=== PATIENT | female | born 1960 | race Caucasian/White ===

== ENCOUNTER 2018-04-20 07:22 | Inpatient (IN) | payer BC ==
[~2018-04-20] VITALS: Ht 170.2 cm; Wt 68.0 kg
--- NOTE | 2018-04-20 07:45 | NUR ---
BIB RA IN C-SPINE PRECAUTION WITH 3 CM LAC TO FOREHEAD S/P GLF. SEEN BY MD FOR EVAL. PT AAOX4. VSS. SAFETY AND COMFORT MEASURES PROVIDED. WILL MONITOR.
[2018-04-20] MEDS ORDERED: LIDOCAINE HCL/PF 1% 30 ML VIAL TP ONE (08:00)
[2018-04-20] MEDS ORDERED: TDAP [DIPH/PERTUSSIS/TET] 0.5 ML VIAL IM ONE ×2 (08:00→08:12)
--- NOTE | 2018-04-20 08:03 | NUR ---
PT TAKEN TO CT.
--- NOTE | 2018-04-20 08:30 | NUR ---
RAPHAEL COLLADO AT FOR WOUND CARE.
[2018-04-20] MEDS ORDERED: ALPR0.5T8 PO (08:55)
[2018-04-20] MEDS ORDERED: ESCI10TA PO (08:55)
[2018-04-20] MEDS ORDERED: LEVO137T24 PO (08:55)
[2018-04-20] MEDS ORDERED: AMLO-354 PO (08:55)
[2018-04-20] MEDS ORDERED: LIDOCAINE 1%-EPI 1:100,000 20 ML VIAL ONE (08:59)
[2018-04-20] MEDS ORDERED: ONDANSETRON HCL/PF 4 MG/2 ML VIAL ONE (10:19)
[2018-04-20] MEDS ORDERED: MORPHINE SULFATE INJ 4 MG/ML DISP.SYRIN ONE (10:20)
[2018-04-20] MEDS ORDERED: BUPR300T54 PO (10:21)
[2018-04-20] MEDS ORDERED: MORPHINE SULFATE INJ 2 MG/ML DISP.SYRIN IV ONE (10:30)
[2018-04-20] MEDS ORDERED: ONDANSETRON HCL/PF 4 MG/2 ML VIAL IVP ONE (10:30)
--- NOTE | 2018-04-20 10:36 | NUR ---
TEXTED DR. SILVESTRE FOR MRI APPROVAL.
[2018-04-20 10:51] LABS: BASOPHILS % (AUTO) 0.3 % (0.0-2.0); EOSINOPHILS % (AUTO) 0.7 % (0.0-6.0); HEMATOCRIT 39 % (33-45); HEMOGLOBIN 13.8 g/dL (11.5-14.8); LYMPHOCYTES # (AUTO) 2.5 /CMM (0.8-4.8); LYMPHOCYTES % (AUTO) 20.8 % (20.0-44.0); MEAN CORPUSCULAR HEMOGLOBIN 32 PG (26.0-33.0); MEAN CORPUSCULAR HGB CONC 36 g/dl (31.0-36.0); MEAN CORPUSCULAR VOLUME 90 fL (82-100); MONOCYTES # (AUTO) 0.7 /CMM (0.1-1.30); MONOCYTES % (AUTO) 5.6 % (2.0-12.0); NEUTROPHILS # (AUTO) 8.8 /CMM (1.8-8.9); NEUTROPHILS % (AUTO) 72.6 % (43.0-81.0); PLATELET COUNT (AUTO) 307 /CMM (150-450); RED BLOOD CELL COUNT(AUTO) 4.31 MIL/uL (4.0-5.2); WHITE BLOOD COUNT (AUTO) 12.1 K/uL (4.3-11.0)
[2018-04-20 11:01] LABS: CALCIUM, SERUM 8.6 mg/dL (8.5-10.1); CREATININE 0.6 mg/dL (0.6-1.3); POTASSIUM 3.8 mmol/L (3.5-5.1)
[2018-04-20 11:06] LABS: INR 0.89 (0.85-1.15)
[2018-04-20] MEDS ORDERED: IV NS 0.9% 1,000 ML BAG IV ONE (12:00)
--- NOTE | 2018-04-20 12:18 | NUR ---
REPORT GIVEN TO VANESSA MINER FOR MS.
[2018-04-20 13:00] VITALS: BP 107/71
--- NOTE | 2018-04-20 13:30 | NUR ---
RN NOTES PT WAS BROUGHT UP TO FLOOR ON GURNEY, AWAKE AND ALERT WITH CERVICAL COLLAR IN PLACE. IV ON RAC INTACT AND RUNNING NS. PT ON RA, RESPIRATIONS ARE EVEN AND UNLABORED. NO SIGNS OF DISTRESS NOTED. SAFETY MEASURES ARE IN PLACE, CALL LIGHT IS IN REACH. WILL CONTINUE TO MONITOR.
[2018-04-20 14:00] VITALS: BP 107/71
[2018-04-20] MEDS ORDERED: MORPHINE SULFATE INJ 2 MG/ML DISP.SYRIN IV PRN ×2 (15:30→16:00)
[2018-04-20] MEDS: ONDANSETRON HCL/PF 4 MG/2 ML VIAL IVP PRN ×2 (15:58→21:59)
[2018-04-20 16:00] VITALS: BP 126/75
[2018-04-20] MEDS ORDERED: MAG HYDROX/AL HYDROX/SIMETH 30 ML UDC PO PRN (16:00)
[2018-04-20] MEDS ORDERED: Z GUARD REMEDY 2 OZ OINT TP PRN (16:00)
[2018-04-20] MEDS: IV NS 0.9% 1,000 ML IV PRN (17:53)
[2018-04-20] MEDS: Thiamine 100 MG in IV D5W 50 ML IV SCH (17:53)
--- NOTE | 2018-04-20 18:37 | NUR ---
RN NOTES PT IS SITTING UP IN BED, AWAKE AND ALERT, RESTING COMFORTABLY. PT ON RA, RESPIRATIONS ARE EVEN AND UNLABORED. IV ON RAC INTACT AND RUNNING NS @ 75ML/HR. LACERATION ON FOREHEAD WAS IRRIGATED AND SUTURED IN ER, PHOTO DOCUMENTATION DONE AND LACERATION KEPT OPEN TO AIR. ALL MEDICATIONS WERE GIVEN ORDERED. NO SIGNS OF DISTRESS NOTED. SAFETY MEASURES ARE IN PLACE, CALL LIGHT IS IN REACH. WILL ENDORSE TO GUEST RELATIONS AGENT RN FOR CONTINUITY OF CARE.
[2018-04-20] MEDS ORDERED: PROMETHAZINE HCL 25 MG TABLET PO PRN (19:00)
--- NOTE | 2018-04-20 19:15 | NUR ---
MS RN OPENING NOTES: RECEIVED PT IN BED AND IS LAYING DOWN. PT IS A/OX4. PT IS ON ROOM AIR AND TOLERATING WELL. PT HAS ICE PACK ON R SHOULDER. PT HAS LACERATION NOTED ON HEAD. PT HAS IV BEING INFUSED WITH IV NS 75ML/HR. CALL LIGHT WITHIN PT'S REACH. BED KEPT IN LOW, LOCKED POSITION, AND SIDE RAILS X 2UP. WILL CONTINUE TO MONITOR PT.
--- NOTE | 2018-04-20 19:51 | NUR ---
MS RN NOTES: CALLED PHARMACY AND INFORMED THEM ABOUT NEW ORDER OF PHENERGAN AND NO MEDS IN BOTH MED ROOM.
[2018-04-20 20:00] VITALS: BP 144/88
[2018-04-20] MEDS: MORPHINE SULFATE INJ 2 MG/ML DISP.SYRIN IV PRN (20:31)
--- NOTE | 2018-04-20 20:39 | NUR ---
MS RN NOTES: PT WAS ADMINISTERED PHENERGAN 25MG PO FOR HER NAUSEA. PT WAS ALSO COMPLAINING OF 8/10 HEAD, NECK, AND R SHOULDER PAIN. PT WAS ADMINISTERED MORPHINE 4MG IV. WILL CONTINUE TO MONITOR.
[2018-04-20] MEDS: ACETAMINOPHEN 325 MG TABLET PO PRN (22:39)
[2018-04-20] MEDS: ZOLPIDEM TARTRATE 5 MG TABLET PO PRN (22:39)
--- NOTE | 2018-04-20 22:43 | NUR ---
MS RN NOTES: PT ADMINISTERED TYLENOL 650MG PO FOR GENERALIZED PAIN. PT WAS ALSO ADMINISTERED AMBIEN 5MG PO FOR SLEEPING AID. WILL CONTINUE TO MONITOR PT.
--- NOTE | 2018-04-20 23:14 | NUR ---
MS RN CLOSING NOTES: ALL NEEDS WERE ATTENDED AND ANTICIPATED FOR. PT ON ROOM AIR. PT AWAKE AND IN NO DISTRESS. NO SOB NOTED. PT HAS IV AND IS BEING INFUSED WITH IV NS AT 75ML/HR. CALL LIGHT WITHIN PT'S REACH. BED KEPT IN LOW, LOCKED POSITION, AND SIDE RAILS X 2UP. ENDORSED TO RN, VILMA Wan FOR ALEJANDRINA.
--- NOTE | 2018-04-20 23:15 | NUR ---
rn ms opening notes received patient in bed awake, alert and oriented x 4, respirations even and unlabored, remains comfortable a this time. iv site to right ac #20 g, intact and patent no redness, no infiltration present, ivf running as ordered, oriented to staff and call light, call light kept within reach, bed drake offered, all needs attended at this time, remains comfortable. will continue to monitor.
[2018-04-21] MEDS: MORPHINE SULFATE INJ 2 MG/ML DISP.SYRIN IV PRN ×4 (01:24→22:39)
--- NOTE | 2018-04-21 01:24 | NUR ---
RN MS NOTES PATIENT REQUESTING FOR MORPHINE PRN , GIVEN ORDERED, STATES SHE HAS PAIN 5/10 ON NECK AND POSTERIOR SHOULDER.
--- NOTE | 2018-04-21 04:19 | NUR ---
RN MS NOTES PATIENT REQUESTING FOR IBUPROFEN STATES SHE TAKES 600MG AT HOME, MD MADE AWARE WITH NEW ORDER NOTED AND CARRIED OUT.
[2018-04-21] MEDS: IBUPROFEN 600 MG TABLET PO PRN ×2 (04:59→20:21)
[2018-04-21] MEDS: ONDANSETRON HCL/PF 4 MG/2 ML VIAL IVP PRN ×2 (05:00→08:19)
[2018-04-21 06:45] LABS: BASOPHILS % (AUTO) 0.3 % (0.0-2.0); EOSINOPHILS % (AUTO) 0.6 % (0.0-6.0); HEMATOCRIT 37 % (33-45); HEMOGLOBIN 12.4 g/dL (11.5-14.8); LYMPHOCYTES # (AUTO) 1.6 /CMM (0.8-4.8); LYMPHOCYTES % (AUTO) 14.3 % (20.0-44.0); MEAN CORPUSCULAR HEMOGLOBIN 32 PG (26.0-33.0); MEAN CORPUSCULAR HGB CONC 34 g/dl (31.0-36.0); MEAN CORPUSCULAR VOLUME 93 fL (82-100); MONOCYTES # (AUTO) 1.3 /CMM (0.1-1.30); MONOCYTES % (AUTO) 11.3 % (2.0-12.0); NEUTROPHILS # (AUTO) 8.4 /CMM (1.8-8.9); NEUTROPHILS % (AUTO) 73.5 % (43.0-81.0); PLATELET COUNT (AUTO) 291 /CMM (150-450); RDW COEFFICIENT OF VARIATION 14.9 (11.5-15.0); RED BLOOD CELL COUNT(AUTO) 3.92 MIL/uL (4.0-5.2); WHITE BLOOD COUNT (AUTO) 11.4 K/uL (4.3-11.0)
--- NOTE | 2018-04-21 06:46 | NUR ---
RN MS CLOSING NOTES PATIENT IN BED, SLEEPING BUT EASILY AROUSABLE, RESPIRATIONS EVEN AND UNLABORED, NOTED IBUPROFEN EFFECTIVE, , IV SITE TO RIGHT AC INTACT AND PATENT IVF RUNNING ORDERED, NO REDNESS NO INFILTRATION PRESENT, BED ADAMS OFFERED, ALL NEEDS ATTENDED AT THIS TIME, NO NAUSEA PRESENT AT THIS TIME, CALL LIGHT KEPT WITHIN REACH, SAFETY PRECAUTIONS IN PLACE, LOW BED, AND LOCKED, FLUIDS OFFERED ALL NEEDS ATTENDED AT THIS TIME WILL CONTINUE TO MONITOR AND ENDORSE TO NEXT SHIFT.
[2018-04-21] MEDS: IV NS 0.9% 1,000 ML IV PRN ×2 (06:53→21:38)
[2018-04-21 07:10] LABS: ALBUMIN 3.5 g/dL (3.4-5.0); BILIRUBIN,TOTAL 0.7 mg/dL (0.2-1.0); CALCIUM, SERUM 8.2 mg/dL (8.5-10.1); CREATININE 0.8 mg/dL (0.6-1.3); MAGNESIUM 1.9 mg/dL (1.8-2.4); PHOSPHORUS 4.1 mg/dL (2.5-4.9); POTASSIUM 4.1 mmol/L (3.5-5.1); TOTAL PROTEIN, SERUM 6.8 g/dL (6.4-8.2)
[2018-04-21 07:16] LABS: THYROID STIMULATING HORMONE 0.804 uIU/mL (0.358-3.74)
--- NOTE | 2018-04-21 07:32 | NUR ---
MS RN OPENING NOTE RECEIVED BEDSIDE REPORT AT THE BEDSIDE. PATIENT IS A/O X4, AWAKE AND RESPONSIVE IN BED. BED IS LOCKED IN LOWEST POSITION, SIDE RAILS UP X3, BED ALARM IS ON. CALL LIGHT WITHIN REACH. EDUCATED THE PATIENT TO USE THE CALL LIGHT TO CALL FOR ASSISTANCE. PATIENT VERBALIZED UNDERSTANDING. DENIES PAIN/DISCOMFORT AT THIS TIME. WILL CONTINUE TO ASSESS/MONITOR THROUGHOUT THE SHIFT.
[2018-04-21 08:00] VITALS: BP 131/81
--- NOTE | 2018-04-21 08:10 | NUR ---
Called the pharmacy ans spoke to pharmacist Alma. Alma stated "Ill take a look at it". Will administered once available on the floor.
[2018-04-21] MEDS: VALSARTAN 80 MG TABLET PO SCH (08:15)
[2018-04-21] MEDS: BUPROPION XL 150 MG TAB.ER.24 PO SCH (08:16)
[2018-04-21] MEDS: ESCITALOPRAM OXALATE (10 MG) 10 MG TABLET PO SCH (08:17)
[2018-04-21] MEDS: AMLODIPINE BESYLATE 5 MG TABLET PO SCH (08:17)
--- NOTE | 2018-04-21 08:19 | NUR ---
PATIENT COMPLAINED OF SEVERE PAIN. MORPHINE ADMINISTERED PRESCRIBED. WILL REASSESS THE PAIN WHEN APPROPRIATE
[2018-04-21] MEDS: ACETAMINOPHEN 325 MG TABLET PO PRN (11:25)
--- NOTE | 2018-04-21 11:25 | NUR ---
patient complained of headache. Tylenol administered as prescribed.
[2018-04-21] MEDS: LEVOTHYROXINE SODIUM 137 MCG TABLET PO SCH (11:27)
--- NOTE | 2018-04-21 13:33 | NUR ---
Reported severe pain in right shoulder. will page Dr Holder. Morphine administered as prescribed.
--- NOTE | 2018-04-21 14:22 | NUR ---
Received telephone order from Dr Holder for stat R/shoulder/humerus X-ray, consult with neurologist and prateek for constipation. read back and verified. Will follow orders as received.
[2018-04-21 16:00] VITALS: BP 129/78
--- NOTE | 2018-04-21 17:45 | NUR ---
DR SINGH AT THE BEDSIDE.
[2018-04-21] MEDS: Thiamine 100 MG in IV D5W 50 ML IV SCH (17:55)
[2018-04-21] MEDS: DOCUSATE SODIUM 250 MG CAPSULE PO SCH (17:57)
--- NOTE | 2018-04-21 18:45 | NUR ---
RN ASSISTED THE PATIENT TO THE BATHROOM AND BACK TO THE BED. PATIENT WAS ABLE TO AMBULATE WITH STANDBY ASSISTANCE.
--- NOTE | 2018-04-21 19:00 | NUR ---
MS RN CLOSING NOTE PATIENT IS A/O X4, AWAKE AND RESPONSIVE IN BED. BED IS LOCKED IN LOWEST POSITION, SIDE RAILS UP X3, BED ALARM IS ON. CALL LIGHT WITHIN REACH. EDUCATED THE PATIENT TO USE THE CALL LIGHT TO CALL FOR ASSISTANCE. PATIENT VERBALIZED UNDERSTANDING. DENIES PAIN/DISCOMFORT AT THIS TIME. WILL ENDORSE TO THE TNT LINE SUPERVISOR NURSE FOR ALEJANDRINA.
--- NOTE | 2018-04-21 19:21 | NUR ---
MS RN OPENING NOTES PATIENT IS A/O X 3, AWAKE AND RESPONSIVE IN BED. STABLE NOT IN DISTRESS, BED IS LOCKED IN LOWEST POSITION, SIDE RAILS UP X3, BED ALARM IS ON. CALL LIGHT WITHIN REACH.
[2018-04-21 20:00] VITALS: BP 125/84
[2018-04-21] MEDS: ZOLPIDEM TARTRATE 5 MG TABLET PO PRN (23:18)
[2018-04-22] MEDS: MORPHINE SULFATE INJ 2 MG/ML DISP.SYRIN IV PRN ×3 (03:45→16:10)
--- NOTE | 2018-04-22 06:18 | NUR ---
MS RN CLOSING NOTES PT COMFORTABLY ASLEEP AND EASILY AWAKEN, A/O X 3, TOLERATING ROOM AIR 100% STABLE CONDITION. RESPIRATION EVEN AND UNLABORED. KEPT CLEAN AND DRY AND COMFORTABLE, ALL NURSING CARE RENDERED. NEEDS ATTENDED AND ANTICIPATED, NO COMPLAINS OF PAIN. ON LOW BED AT ALL TIMES TO ENSURE SAFETY. SAFE HAZARD FREE ENVIRONMENT PROVIDED. CALL LIGHT WITHIN EASY TO REACH. WILL ENDORSE NEXT SHIFT CONTINUITY OF CARE.
--- NOTE | 2018-04-22 07:17 | NUR ---
RN OPENING NOTES RECEIVED REPORT AT THE BEDSIDE. PATIENT IS A/O X4, AWAKE AND RESPONSIVE, RESTING IN BED. NO ACUTE DISTRESS, NO SOB. DENIED PAIN/DISCOMFORT AT THIS TIME. IV SITE INTACT AND PATENT. KEPT PATIENT SAFE AND COMFORTABLE. BED IS LOCKED IN LOWEST POSITION, SIDE RAILS UP X2, BED ALARM IS ON. CALL LIGHT WITHIN REACH. EDUCATED THE PATIENT TO USE THE CALL LIGHT TO CALL FOR ASSISTANCE. PATIENT VERBALIZED UNDERSTANDING. WILL CONTINUE TO ASSESS/MONITOR ACCORDINGLY.
--- NOTE | 2018-04-22 07:35 | NUR ---
RN NOTES NECKBRACE AT BEDSIDE. PER PATIENT, DR SINGH TOLD HER SHE DOESN'T HAVE TO WEAR IT ALL THE TIME.
[2018-04-22 07:58] LABS: BASOPHILS % (AUTO) 0.4 % (0.0-2.0); EOSINOPHILS % (AUTO) 2.1 % (0.0-6.0); HEMATOCRIT 36 % (33-45); HEMOGLOBIN 12.1 g/dL (11.5-14.8); LYMPHOCYTES # (AUTO) 2.1 /CMM (0.8-4.8); LYMPHOCYTES % (AUTO) 27.5 % (20.0-44.0); MEAN CORPUSCULAR HEMOGLOBIN 32 PG (26.0-33.0); MEAN CORPUSCULAR HGB CONC 34 g/dl (31.0-36.0); MEAN CORPUSCULAR VOLUME 94 fL (82-100); MONOCYTES # (AUTO) 0.7 /CMM (0.1-1.30); MONOCYTES % (AUTO) 9.1 % (2.0-12.0); NEUTROPHILS # (AUTO) 4.6 /CMM (1.8-8.9); NEUTROPHILS % (AUTO) 60.9 % (43.0-81.0); PLATELET COUNT (AUTO) 249 /CMM (150-450); RDW COEFFICIENT OF VARIATION 15.1 (11.5-15.0); RED BLOOD CELL COUNT(AUTO) 3.86 MIL/uL (4.0-5.2); WHITE BLOOD COUNT (AUTO) 7.5 K/uL (4.3-11.0)
[2018-04-22 08:00] VITALS: BP 134/87
[2018-04-22] MEDS: LEVOTHYROXINE SODIUM 137 MCG TABLET PO SCH (08:02)
[2018-04-22 08:07] LABS: CALCIUM, SERUM 8.9 mg/dL (8.5-10.1); CREATININE 0.7 mg/dL (0.6-1.3); MAGNESIUM 1.9 mg/dL (1.8-2.4); PHOSPHORUS 4.3 mg/dL (2.5-4.9)
[2018-04-22] MEDS: BUPROPION XL 150 MG TAB.ER.24 PO SCH (09:00)
[2018-04-22] MEDS: DOCUSATE SODIUM 250 MG CAPSULE PO SCH ×2 (09:00→16:12)
[2018-04-22] MEDS: ESCITALOPRAM OXALATE (10 MG) 10 MG TABLET PO SCH (09:00)
[2018-04-22] MEDS: VALSARTAN 80 MG TABLET PO SCH (09:01)
[2018-04-22] MEDS: AMLODIPINE BESYLATE 5 MG TABLET PO SCH (09:01)
[2018-04-22] MEDS: ONDANSETRON HCL/PF 4 MG/2 ML VIAL IVP PRN (09:11)
[2018-04-22] MEDS: IBUPROFEN 600 MG TABLET PO PRN (10:52)
[2018-04-22 16:00] VITALS: BP 124/88
[2018-04-22] MEDS ORDERED: diphenhydrAMINE HCL 50 MG/ML VIAL IV ONE (16:30)
--- NOTE | 2018-04-22 16:30 | NUR ---
DR SINGH AT BEDSIDE TALKING TO PATIENT. NEW ORDER OF BENADRYL 25MG IV ONE TIME.
[2018-04-22] MEDS ORDERED: THIAMINE HCL 100 MG TABLET PO SCH (17:00)
--- NOTE | 2018-04-22 18:00 | NUR ---
RN NOTES NOTIFIED DR SINGH OF PATIENT'S MILD SWELLING ON THE FACE NOT GETTING BETTER WITH THE BENADRYL. NEW ORDERS NOTED AND CARRIED OUT. (ORDERS OF ZYRTEC 10MG PO ONCE AND SOLUMEDROL 125MG IV ONCE NOTED AND CARRIED OUT).
[2018-04-22] MEDS ORDERED: OXYC-133 PO (18:10)
[2018-04-22] MEDS ORDERED: TEMA30CA5 PO (18:10)
[2018-04-22] MEDS ORDERED: cetrizine 10 MG TABLET PO ONE (18:30)
[2018-04-22] MEDS ORDERED: methylPREDNISolone SOD SUCC 125 MG/2ML VIAL IV ONE (18:30)
--- NOTE | 2018-04-22 18:30 | NUR ---
RN NOTES PER DR SINGH, "IF SYMPTOMS HAD NOT GOTTEN WORSE, SHE CAN GO". PATIENT FOR DISCHARGE.
--- NOTE | 2018-04-22 19:00 | NUR ---
RN CLOSING NOTES PATIENT IN STABLE CONDITION. ALL NEEDS ATTENDED AND PROVIDED. KEPT PATIENT SAFE AND COMFORTABLE. BED IN LOW LOCKED POSITION, SIDERAILS UPX2, CALL LIGHT IN REACH. ENDORSED TO NIGHT RN FOR ALEJANDRINA.
--- NOTE | 2018-04-22 19:59 | NUR ---
DICHARGE NOTES DISCHARGE PT. IN STABLE CONDITION , NO ACUTE DISTRESS NOTED, PICKED BY FAMILY MEMBER SIDE PULLER ACCOMPANIED PT. TO THE LOBBY , D/C INSTRUCTIONS GIVEN VERBALIZED UNDERSTANDING , ALL BELONGINS RETURNED , REMOVED IV , APPLIED PRESSURE ,NO BLEEDING , DENIES ANY PAIN DISCOMFORT AT THIS TIME, PT. REFUSED TO TAKE PICTURE FORHEAD SCALP, ENCOURAGED , BUT STILL REFUSED ,
== END 2018-04-22 19:55 | disposition home or self-care (01) | DRG 71 ==
LOC: ER 07:24 → MED 12:42
PROVIDERS: ADMIT Nurse Practitioner Acute Care; ATTEND Nurse Practitioner Acute Care
DX: G45.4 Transient global amnesia (principal); S02.113A Unspecified occipital condyle fracture, initial encounter for closed fracture; W19.XXXA Unspecified fall, initial encounter; Y92.9 Unspecified place or not applicable; Z88.2 Allergy status to sulfonamides; Z79.899 Other long term (current) drug therapy; S01.01XA Laceration without foreign body of scalp, initial encounter; S01.81XA Laceration without foreign body of other part of head, initial encounter; E06.3 Autoimmune thyroiditis; F32.9 Major depressive disorder, single episode, unspecified; S16.1XXA Strain of muscle, fascia and tendon at neck level, initial encounter; V89.2XXA Person injured in unspecified motor-vehicle accident, traffic, initial encounter; Y92.410 Unspecified street and highway as the place of occurrence of the external cause; F07.81 Postconcussional syndrome
CPT/HCPCS: 36415; 70450-TC; 71045-TC; 72125-TC; 72141-TC; 73030-TC; 73060-TC; 80048-TC; 80053-TC; 80061-TC; 82962-TC; 83735-TC; 84100-TC; 84443-TC; 85025-TC; 85730-TC; 87081-TC; 90715; A4606; A6402; A6403; J1200; J2270; J2405; J2930; J3411; J3490; J7030; J7060; Q0169; Z7610

== ENCOUNTER 2019-01-15 09:20 | Emergency (ER) | payer BC ==
[~2019-01-15] VITALS: Ht 162.6 cm; Wt 69.9 kg
[~2019-01-15 09:20] MED LIST: AMLO-354 PO; BUPR300T54 PO; ESCI10TA PO; LEVO137T24 PO; OXYC-133 PO; TEMA30CA5 PO
--- NOTE | 2019-01-15 09:30 | NUR ---
Patient presented to the ER c/o chest pain early this morning. On room air, breathing evenly and unlabored. Connected to the monitor and pulse ox. kept comfortable. will continue to monitor accordingly.
[2019-01-15 09:48] LABS: BASOPHILS # (AUTO) 0.1 /CMM (0.0-0.2); BASOPHILS % (AUTO) 0.7 % (0.0-2.0); EOSINOPHILS % (AUTO) 2.8 % (0.0-6.0); HEMATOCRIT 41 % (33-45); LYMPHOCYTES # (AUTO) 4.8 /CMM (0.8-4.8); LYMPHOCYTES % (AUTO) 48.5 % (20.0-44.0); MEAN CORPUSCULAR HGB CONC 34 g/dl (31.0-36.0); MEAN CORPUSCULAR VOLUME 88 fL (82-100); MONOCYTES # (AUTO) 0.9 /CMM (0.1-1.30); MONOCYTES % (AUTO) 9.2 % (2.0-12.0); NEUTROPHILS # (AUTO) 3.9 /CMM (1.8-8.9); NEUTROPHILS % (AUTO) 38.8 % (43.0-81.0); PLATELET COUNT (AUTO) 401 /CMM (150-450); RED BLOOD CELL COUNT(AUTO) 4.61 MIL/uL (4.0-5.2)
[2019-01-15 09:55] LABS: CALCIUM, SERUM 8.6 mg/dL (8.5-10.1); CARBON DIOXIDE 25 mmol/L (21-32); CHLORIDE 103 mmol/L (98-107); CREATININE 0.7 mg/dL (0.6-1.3); GLUCOSE 98 mg/dL (74-106); POTASSIUM 4.1 mmol/L (3.5-5.1); SODIUM SERUM 140 mmol/L (136-145); UREA NITROGEN, BLOOD 21 mg/dL (7-18)
[2019-01-15] MEDS ORDERED: ASPIRIN 81 MG TAB.CHEW ONE (09:55)
[2019-01-15] MEDS ORDERED: FAMOTIDINE (20 MG) 20 MG TABLET ONE (09:55)
[2019-01-15] MEDS ORDERED: MAG HYDROX/AL HYDROX/SIMETH 30 ML UDC ONE (09:57)
[2019-01-15 09:59] LABS: ALCOHOL, BLOOD 294 mg/dL (0-0); LIPASE 140 U/L (73-393)
[2019-01-15] MEDS ORDERED: FAMOTIDINE (20 MG) 20 MG TABLET PO ONE (10:00)
[2019-01-15] MEDS ORDERED: ASPIRIN 81 MG TAB.CHEW PO ONE (10:00)
[2019-01-15] MEDS ORDERED: MAG HYDROX/AL HYDROX/SIMETH 30 ML UDC PO ONE (10:00)
--- NOTE | 2019-01-15 10:18 | NUR ---
SECOND EKG IS TO BE DONE AT 1125 PER MD REQUEST.
[2019-01-15 12:52] VITALS: BP 135/81
--- NOTE | 2019-01-15 12:53 | NUR ---
Patient discharged to home in stable condition. Written and verbal after care instructions given. Patient verbalizes understanding of instruction.IV removed. Catheter intact and site benign. Pressure and 4x4 applied to site. No bleeding noted.
== END 2019-01-15 12:53 | disposition home or self-care (01) ==
LOC: ER 09:20
DX: R07.89 Other chest pain (principal); I10 Essential (primary) hypertension; E07.9 Disorder of thyroid, unspecified; Z88.2 Allergy status to sulfonamides; Z79.899 Other long term (current) drug therapy
CPT/HCPCS: 36415; 71045-TC; 80048-TC; 83690-TC; 84484-TC; 85025-TC; G0480